=== PATIENT | male | born 1970 | race Caucasian/White ===

== ENCOUNTER 2017-03-11 13:37 | Day surgery (SDC) | payer OTHER ==
[~2017-03-11] VITALS: Ht 152.4 cm; Wt 109.1 kg
[2017-03-11] MEDS ORDERED: MORPHINE SULFATE 4 MG/ML, 1ML ONE (14:28)
[2017-03-11] MEDS ORDERED: ONDANSETRON 2MG/ML, 2ML ONE ×3 (14:28→17:43)
[2017-03-11] MEDS ORDERED: SODIUM CHLORIDE FLUSH 10ML SYR IVF ONE (14:30)
[2017-03-11] MEDS ORDERED: SODIUM CHLORIDE 0.9% 1,000ML IVBOLUS ONE ×2 (14:30→16:30)
[2017-03-11] MEDS ORDERED: MORPHINE SULFATE 4 MG/ML, 1ML IVPush PRN (14:30)
[2017-03-11] MEDS ORDERED: ONDANSETRON 2MG/ML, 2ML IVPush ONE (14:30)
[2017-03-11] MEDS ORDERED: MELO-184 PO (14:52)
[2017-03-11 15:04] LABS: BLOOD UREA NITROGEN 13 mg/dL (7-18)
[2017-03-11 15:08] LABS: ASPARTATE AMINO TRANSFERASE 19 U/L (15-37)
[2017-03-11] MEDS ORDERED: OMNIPAQUE 350 MG/ML, 100ML BOTTLE ONE (15:57)
[2017-03-11] MEDS ORDERED: AMPICILLIN/SULBACTAM 3 GM in SODIUM CHLORIDE 0.9% 100 ML IV ONE (16:30)
[2017-03-11 16:56] VITALS: BP 142/76
[2017-03-11] MEDS ORDERED: BUPIVACAINE/PF-EPI 0.5% 1:200K ONE (17:06)
[2017-03-11] MEDS ORDERED: MIDAZOLAM 1 MG/ML, 2ML ONE (17:14)
[2017-03-11] MEDS ORDERED: FENTANYL PF 250 MCG/5ML ONE (17:14)
[2017-03-11] MEDS ORDERED: ROCURONIUM 10 MG/ML ONE (17:43)
[2017-03-11] MEDS ORDERED: GLYCOPYRROLATE 0.2MG/1ML ONE (17:43)
[2017-03-11] MEDS ORDERED: SUCCINYLCHOLINE 20 MG/ML, 10ML ONE (17:43)
[2017-03-11] MEDS ORDERED: PROPOFOL 10 MG/ML, 20ML ONE (17:43)
[2017-03-11] MEDS ORDERED: NEOSTIGMINE 1 MG/ML, 10ML ONE (17:43)
[2017-03-11] MEDS ORDERED: DEXAMETHASONE 4 MG/ML, 1ML ONE (17:43)
[2017-03-11] MEDS ORDERED: KETOROLAC 30 MG/1 ML ONE (18:20)
[2017-03-11] MEDS ORDERED: OXYcodone 5 MG/5 ML ORAL.SOL UDC ONE (18:21)
[2017-03-11] MEDS ORDERED: EPHEDRINE 50 MG/ML, 1ML IVPush PRN (18:30)
[2017-03-11] MEDS ORDERED: ONDANSETRON 2MG/ML, 2ML IVPush PRN (18:30)
[2017-03-11] MEDS ORDERED: FENTANYL PF 100 MCG/2ML IV PRN (18:30)
[2017-03-11] MEDS ORDERED: METOPROLOL 1 MG/ML, 5ML IV PRN (18:30)
[2017-03-11] MEDS ORDERED: hydrALAzine 20 MG/ML, 1ML IV PRN (18:30)
[2017-03-11] MEDS ORDERED: MIDAZOLAM 1 MG/ML, 2ML IV PRN (18:30)
[2017-03-11] MEDS ORDERED: HYDROmorphone 1 MG/ML, 1ML IV PRN (18:30)
[2017-03-11] MEDS ORDERED: MEPERIDINE/PF 25MG/0.5ML IVPush PRN (18:30)
[2017-03-11] MEDS ORDERED: OXYcodone 5 MG/5 ML ORAL.SOL UDC PO PRN (18:30)
[2017-03-11] MEDS ORDERED: ALBUTEROL SULFATE 2.5 MG/3 ML NPPB PRN (18:30)
[2017-03-11] MEDS ORDERED: KETOROLAC 30 MG/1 ML IVPush ONE (18:30)
[2017-03-11] MEDS ORDERED: LABETALOL 5MG/ML, 20ML IV PRN (18:30)
[2017-03-11] MEDS ORDERED: ACETAMINOPHEN 325 MG TABLET PO PRN (18:30)
[2017-03-11] MEDS ORDERED: PROMETHAZINE 25 MG/ML, 1ML IV PRN (18:30)
[2017-03-11] MEDS ORDERED: IBUP800T PO (20:05)
[2017-03-11] MEDS ORDERED: OXYC-223 PO (20:07)
[2017-03-11] MEDS ORDERED: OXYcodone/APAP 5/325MG TABLET PO PRN (20:30)
[2017-03-11] MEDS ORDERED: morphine SULFATE 10 MG/ML, 1ML IV PRN (20:30)
[2017-03-11] MEDS ORDERED: KETOROLAC 30 MG/1 ML IV ONE (20:30)
[2017-03-11] MEDS ORDERED: ONDANSETRON 2MG/ML, 2ML IV PRN (20:30)
== END 2017-03-11 22:45 | disposition home or self-care (01) ==
LOC: ED 14:18 → EDIP 16:11 → UNDOADMIN 16:11 → OR 16:11 → EDIP 19:26 → 4NOR 19:26 → UNDODISIN 22:45 → OR 22:45
PROVIDERS: ATTEND Surgery
DX: K35.80 Unspecified acute appendicitis (principal)
CPT/HCPCS: 36415; 44970; 74177; 80053; 81003; 83690; 85025; 88304; 96374; 99285; J0295; J0330; J1100; J1885; J2250; J2405; J2704; J2710; J3010; J7030; Q9967; J3490